=== PATIENT | female | born 1970 | race Two or more races ===

== ENCOUNTER 2017-11-06 07:56 | Emergency (ER) | payer MEDICAID ==
[~2017-11-06] VITALS: Ht 162.6 cm; Wt 69.8 kg
[2017-11-06 08:08] VITALS: Ht 162.6 cm; Wt 69.8 kg
[2017-11-06 09:00] LABS: BASOPHIL % 0.3 % (0-2); PLATELET COUNT 275 x10^3mcL (130-400); RED CELL DISTRIBUTION WIDTH 12.3 % (11.5-14.5)
[2017-11-06 09:11] LABS: CALCIUM 8.1 mg/dL (8.5-10.1); CARBON DIOXIDE 25.7 mmol/L (21-32); CHLORIDE SERUM 106 mmol/L (98-107); CREATININE SERUM 0.7 mg/dL (0.6-1.0); GFR1 > 60 mL/min; GLUCOSE SERUM 114 mg/dL (74-106); POTASSIUM SERUM 3.9 mmol/L (3.5-5.1); SODIUM SERUM 137 mmol/L (136-145)
[2017-11-06 10:37] VITALS: BP 120/71
== END 2017-11-06 10:37 | disposition home or self-care (01) ==
LOC: ED 07:56
PROVIDERS: Emergency Medicine
DX: M19.072 Primary osteoarthritis, left ankle and foot (principal); M19.071 Primary osteoarthritis, right ankle and foot
CPT/HCPCS: 36415; J1885